=== PATIENT | male | born 1990 | race Caucasian/White ===

== ENCOUNTER 2016-02-19 11:35 | Emergency (ER) | payer BC, OTHER ==
[~2016-02-19] VITALS: Ht 182.9 cm; Wt 97.7 kg
[2016-02-19 11:35] VITALS: BP_SYST 128; BP_SYST 135; BP_DIAS 72; BP_DIAS 93; PULSE 63; RESP 16; TEMP 98.3; O2SAT 100
[2016-02-19] MEDS ORDERED: SODIUM CHLOR 0.9% 1000 ML INJ 1,000 ML IV ONE (11:45)
[2016-02-19] MEDS ORDERED: TETANUS/DIPHTHERIA TOXOID ADULT 0.5 ML VIAL IM ONE (11:45)
[2016-02-19] MEDS ORDERED: ceFAZolin 2 GM PREMIX 50 ML IV ONE (11:45)
[2016-02-19] MEDS ORDERED: HYDROmorphone HCL PF 1 MG/ML VIAL IV PUSH ONE ×2 (11:45→12:00)
[2016-02-19] MEDS ORDERED: ceFAZolin 2 GM PREMIX 50 ML ONE (11:48)
[2016-02-19] MEDS ORDERED: HYDROmorphone HCL PF 1 MG/ML VIAL ONE ×2 (11:48→11:58)
[2016-02-19] MEDS ORDERED: DIPHTH/TETANUS/ACEL PERTUSSIS (BOOSTER) 0.5 ML VIAL/PFS IM ONE (11:53)
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
[2016-02-19] MEDS ORDERED: LACTATED RINGER'S 1000 ML INJ 1,000 ML IV SCH (12:15)
[2016-02-19 12:21] LABS: BASOPHIL # 0.1 TH/MM3 (0-0.2); BASOPHIL % 0.9 % (0.0-2.0); EOSINOPHIL # 0.2 TH/MM3 (0-0.4); EOSINOPHIL % 1.2 % (0.0-4.0); HEMATOCRIT 45.8 % (39.0-51.0); LYMPH % 58.5 % (9.0-44.0); LYMPHOCYTE # 7.4 TH/MM3 (1.0-4.8); MEAN CELL VOLUME 86.8 FL (80.0-100.0); MEAN CORPUSCULAR HEMOGLOBIN 29.3 PG (27.0-34.0); MEAN CORPUSCULAR HGB CONC 33.8 % (32.0-36.0); MONO % 7.6 % (0.0-8.0); NEUT % 31.8 % (16.0-70.0); PLATELET COUNT 269 TH/MM3 (150-450); RED BLOOD COUNT 5.27 MIL/MM3 (4.50-5.90); RED CELL DISTRIBUTION WIDTH 13.2 % (11.6-17.2); WHITE BLOOD COUNT 12.7 TH/MM3 (4.0-11.0)
[2016-02-19 12:29] LABS: APTT (PATIENT) 27.5 SEC (24.3-30.1); PROTHROMBIN TIME - PATIENT 11.1 SEC (9.8-11.6)
[2016-02-19 12:31] LABS: HEMO FLAGS AUTO DIFF
[2016-02-19 12:36] LABS: BICARBONATE 23.7 MEQ/L (21.0-32.0); POTASSIUM 3.1 MEQ/L (3.5-5.1)
[2016-02-19] MEDS ORDERED: POTASSIUM CHLORIDE 25 MEQ EFFERVESCENT TAB PO ONE (12:45)
[2016-02-19] MEDS ORDERED: HYDROmorphone HCL PF 2 MG/ML VIAL IV PUSH ONE (12:45)
[2016-02-19] MEDS ORDERED: HYDROmorphone HCL PF 2 MG/ML VIAL ONE (12:52)
[2016-02-19 13:34] LABS: SCAN/DIFF AUTO DIFF CONFIRMED
== END 2016-02-19 13:35 | disposition short-term general hospital (02) ==
LOC: NEPI 11:35
DX: T23.202A Burn of second degree of left hand, unspecified site, initial encounter (principal); T24.212A Burn of second degree of left thigh, initial encounter; T24.211A Burn of second degree of right thigh, initial encounter; T31.11 Burns involving 10-19% of body surface with 10-19% third degree burns; T52.4X1A Toxic effect of ketones, accidental (unintentional), initial encounter; F12.90 Cannabis use, unspecified, uncomplicated; X08.8XXA Exposure to other specified smoke, fire and flames, initial encounter
CPT/HCPCS: 16030; 80048; 85025; 85610; 85730; 90471; 90714; 90715; 96361; 96374; 96375; 96376; 99284; J0690; J1170; J7030; J7120